=== PATIENT | male | born 1940 | race Caucasian/White ===

== ENCOUNTER → 2020-12-08 | Outpatient (CLI) | payer MEDICARE | END | disposition home or self-care (01) | LOC: SHCH 14:26 | PROVIDERS: ATTEND Internal Medicine Cardiovascular Disease | DX: I48.20 Chronic atrial fibrillation, unspecified (principal) | CPT/HCPCS: 93306; 93356 ==

== ENCOUNTER → 2020-12-09 | Outpatient (CLI) | payer MEDICARE | END | disposition home or self-care (01) | LOC: RAH 10:41 | PROVIDERS: ATTEND Nurse Practitioner Family | DX: M17.12 Unilateral primary osteoarthritis, left knee (principal) | CPT/HCPCS: 93925 ==

== ENCOUNTER → 2020-12-30 | Outpatient (CLI) | payer MEDICARE ==
[~2020-12-30] VITALS: Ht 195.6 cm; Wt 148.8 kg
[~2020-12-30] MED LIST: REGADENOSON 0.4 MG/5 ML PF SYG IVP SCH
== END | disposition home or self-care (01) ==
LOC: SHCH 08:30
PROVIDERS: ATTEND Internal Medicine Cardiovascular Disease
DX: I10 Essential (primary) hypertension (principal); I48.91 Unspecified atrial fibrillation; R06.00 Dyspnea, unspecified; R51.9 Headache, unspecified
CPT/HCPCS: 78452; 93017; 96374; A9500 ×2

== ENCOUNTER 2021-01-16 07:34 | Day surgery (SDC) | payer MEDICARE ==
[2021-01-13 13:18] LABS: BASOPHILS % (AUTO) 0.3 % (0.0-5.0); EOSINOPHILS % (AUTO) 3.6 % (0.0-8.0); HEMATOCRIT 40.6 % (42-54); LYMPHOCYTES % (AUTO) 19.6 % (21.0-51.0); MEAN CORPUSCULAR HEMOGLOBIN 32.2 pg (27.0-33.0); MEAN CORPUSCULAR HGB CONC 32.8 g/dL (32.0-36.0); MEAN CORPUSCULAR VOLUME 98.3 fL (79-99); MONOCYTES % (AUTO) 8.2 % (3.0-13.0); PLATELET COUNT (AUTO) 89 K/uL (130-400); RED BLOOD CELL COUNT(AUTO) 4.13 MIL/uL (4.50-6.20); RED CELL DISTRIBUTION WIDTH 13.8 % (11.0-15.5); WHITE BLOOD COUNT (AUTO) 3.9 K/uL (4.8-10.8)
[2021-01-13 13:23] LABS: APPEARANCE,URINE Clear (CLEAR); BILIRUBIN,URINE Negative (NEGATIVE); COLOR,URINE Yellow (YELLOW); GLUCOSE, URINE (UA) Negative (NEGATIVE); KETONES,URINE Negative (NEGATIVE); LEUKOCYTE ESTERASE ,URINE Negative (NEGATIVE); NITRATE,URINE Negative (NEGATIVE); OCCULT BLOOD,URINE Negative (NEGATIVE); PH,URINE 6.5 (5.0-8.0); PROTEIN,URINE Negative (NEGATIVE)
[2021-01-13 13:31] LABS: CREATININE 0.9 mg/dL (0.5-1.5); POTASSIUM 4.4 mmol/L (3.5-5.1)
[2021-01-13 13:36] LABS: INR 1.05 (0.85-1.15); PROTHROMBIN TIME 11.4 SEC (9.6-11.6)
[2021-01-13 13:37] LABS: PARTIAL THROMBOPLASTIN TIME 30.1 SEC (26.3-35.5)
[2021-01-13 15:20] VITALS: BP 126/82
[2021-01-16] VITALS (9 sets, daily range): BP systolic 103–122; BP diastolic 51–70
[~2021-01-16] VITALS: Ht 195.6 cm; Wt 148.6 kg
[~2021-01-16 07:34] MED LIST changes: +ATOR10 PO; +CHOL200079 PO; +HYDR-4154 PO; +LABE200T5 PO; +LEVO300T8 PO; +LOSA100T58 PO; +METH850P PO; +NITR0.4T SL; +PREG100C55 PO; -REGADENOSON 0.4 MG/5 ML PF SYG IVP SCH; +RIVA20TA PO; +TAMS-1 PO; +TYLENOL PM PO; +UBID200C18 PO
[2021-01-16] MEDS ORDERED: SODIUM CHLORIDE 0.9% 1000ML 1,000 ML IV ONE (07:38)
[2021-01-16] MEDS ORDERED: LEVO175C2 PO (08:32)
[2021-01-16] MEDS ORDERED: LEVO150C4 PO (08:32)
[2021-01-16] MEDS ORDERED: SODIUM BICARB 50MEQ 50ML VIAL 50 ML ONE (11:31)
[2021-01-16] MEDS ORDERED: HEPARIN SODIUM 1000UNIT/ML 10ML VIAL ONE (11:31)
[2021-01-16] MEDS ORDERED: NITROGLYCERIN 2 MG/VIAL VIAL IV ONE (11:32)
[2021-01-16] MEDS ORDERED: MEPERIDINE-PF 25 MG/ML SYG ONE (11:32)
[2021-01-16] MEDS ORDERED: MIDAZOLAM HCL 1 MG/ML 2ML VIAL ONE (11:32)
[2021-01-16] MEDS ORDERED: IOHEXOL-350 50ML VIAL IV ONE (11:32)
[2021-01-16] MEDS ORDERED: IOHEXOL 350 MG/ML 100ML INFUS..BTL IV ONE (11:32)
[2021-01-16] MEDS ORDERED: LIDOCAINE HCL 2% 20ML ONE (11:32)
[2021-01-16] MEDS ORDERED: NITROGLYCERIN 4.1 GM SPRAY TL ONE (12:29)
[2021-01-16] MEDS ORDERED: HYDRALAZINE HCL 20 MG/ML VIAL ONE (12:38)
[2021-01-16] MEDS ORDERED: ACETAMINOPHEN-CODEINE 300/30MG TAB PO PRN ×2 (12:45)
[2021-01-16] MEDS ORDERED: SODIUM CHLORIDE 0.9% 1000ML 1,000 ML IV SCH (12:45)
[2021-01-16] MEDS ORDERED: HYDRALAZINE HCL 20 MG/ML VIAL IM PRN (12:45)
== END 2021-01-16 17:10 ==
LOC: DAH 07:34
PROVIDERS: ATTEND Internal Medicine Cardiovascular Disease
DX: I25.118 Atherosclerotic heart disease of native coronary artery with other forms of angina pectoris (principal); I48.20 Chronic atrial fibrillation, unspecified; E03.9 Hypothyroidism, unspecified; E78.5 Hyperlipidemia, unspecified; I10 Essential (primary) hypertension; G62.9 Polyneuropathy, unspecified; E86.0 Dehydration; Z79.01 Long term (current) use of anticoagulants; Z79.899 Other long term (current) drug therapy; E66.9 Obesity, unspecified; Z98.890 Other specified postprocedural states
CPT/HCPCS: 36415; 71045; 80048; 81003; 85025; 85610; 85730; 93005; 93458; 96360; 96361 ×2; A4215; A4216; A4221; A4222; A4223 ×3; A4606; A4663; C1760; C1894; J0360; J1644; J2175; J2250; J3490 ×3; J7030; Q9965; Q9967 ×2; 99156; 99157

== ENCOUNTER → 2021-08-28 | Outpatient (CLI) | payer MEDICARE ==
[~2021-08-28] MED LIST changes: +DULO60CA64 PO; +LEVO150C4 PO; +LEVO175C2 PO; -LEVO300T8 PO; -LOSA100T58 PO; -METH850P PO; -NITR0.4T SL; -PREG100C55 PO
== END | disposition home or self-care (01) ==
LOC: RAH 08:37
PROVIDERS: ATTEND Internal Medicine
DX: I71.4 Abdominal aortic aneurysm, without rupture (principal); I25.10 Atherosclerotic heart disease of native coronary artery without angina pectoris; I48.20 Chronic atrial fibrillation, unspecified
CPT/HCPCS: 76775

== ENCOUNTER → 2022-12-05 | Outpatient (CLI) | payer MEDICARE ==
[~2022-12-05] MED LIST changes: -LABE200T5 PO; +LABE200T7 PO
[2022-12-05 12:38] LABS: BASOPHILS % (AUTO) 0.5 % (0.0-5.0); EOSINOPHILS % (AUTO) 2.1 % (0.0-8.0); HEMATOCRIT 43.8 % (42-54); MEAN CORPUSCULAR HEMOGLOBIN 31.7 pg (27.0-33.0); MEAN CORPUSCULAR HGB CONC 32.6 g/dL (32.0-36.0); MEAN CORPUSCULAR VOLUME 97.1 fL (79-99); MONOCYTES % (AUTO) 8.6 % (3.0-13.0); NEUTROPHILS % (AUTO) 73.3 % (40.0-77.0); PLATELET COUNT (AUTO) 98 K/uL (130-400); RED BLOOD CELL COUNT(AUTO) 4.51 MIL/uL (4.50-6.20); RED CELL DISTRIBUTION WIDTH 13.2 % (11.0-15.5); WHITE BLOOD COUNT (AUTO) 4.2 K/uL (4.8-10.8)
[2022-12-05 12:53] LABS: INR 0.98 (0.85-1.15); PROTHROMBIN TIME 10.7 SEC (9.6-11.6)
[2022-12-05 12:54] LABS: PARTIAL THROMBOPLASTIN TIME 28.7 SEC (26.3-35.5)
[2022-12-05 12:55] LABS: ALBUMIN 3.8 g/dL (3.5-5.0); CREATININE 0.8 mg/dL (0.5-1.5); POTASSIUM 4.5 mmol/L (3.5-5.1); TOTAL PROTEIN, SERUM 6.8 g/dL (6.0-8.3)
== END | disposition home or self-care (01) ==
LOC: LAB 11:08
PROVIDERS: ATTEND Internal Medicine Cardiovascular Disease
DX: I25.10 Atherosclerotic heart disease of native coronary artery without angina pectoris (principal); Z79.01 Long term (current) use of anticoagulants
CPT/HCPCS: 36415; 80053; 85025; 85610; 85730

== ENCOUNTER → 2023-01-07 | Outpatient (CLI) | payer MEDICARE | END | disposition home or self-care (01) | LOC: RAH 14:40 | PROVIDERS: ATTEND Internal Medicine | DX: N28.1 Cyst of kidney, acquired (principal); M54.50 Low back pain, unspecified; N32.89 Other specified disorders of bladder; R31.9 Hematuria, unspecified | CPT/HCPCS: 76770 ==

== ENCOUNTER 2024-02-17 06:33 | Day surgery (SDC) | payer MEDICARE ==
[2024-02-14 11:46] LABS: BASOPHILS # (AUTO) 0.01 K/uL (0.00-0.20); BASOPHILS % (AUTO) 0.4 % (0.0-5.0); EOSINOPHILS # (AUTO) 0.06 K/uL (0.00-0.70); EOSINOPHILS % (AUTO) 2.3 % (0.0-8.0); IMMATURE GRANULOCYTE ABSOLUTE 0.01 K/uL (0-1); LYMPHOCYTES # (AUTO) 0.6 K/uL (1.0-4.8); LYMPHOCYTES % (AUTO) 23.3 % (21.0-51.0); MEAN CORPUSCULAR HGB CONC 33.4 g/dL (32.0-36.0); MEAN CORPUSCULAR VOLUME 95.8 fL (79-99); MONOCYTES # (AUTO) 0.2 K/uL (0.1-1.0); MONOCYTES % (AUTO) 8.9 % (3.0-13.0); NEUTROPHILS # (AUTO) 1.7 K/uL (1.8-7.7); NEUTROPHILS % (AUTO) 64.7 % (40.0-77.0); PLATELET COUNT (AUTO) 65 K/uL (130-400); RED BLOOD CELL COUNT(AUTO) 4.28 MIL/uL (4.50-6.20); RED CELL DISTRIBUTION WIDTH 13.1 % (11.0-15.5); WHITE BLOOD COUNT (AUTO) 2.6 K/uL (4.8-10.8)
[2024-02-14 11:47] VITALS: BP 136/72; PULSE 54; RESP 16
[2024-02-14 11:59] LABS: INR 0.99 (0.85-1.15); PROTHROMBIN TIME 11.7 SEC (9.6-11.6)
[2024-02-14 12:01] LABS: PARTIAL THROMBOPLASTIN TIME 29.9 SEC (26.3-35.5)
[2024-02-14 12:06] LABS: CREATININE 0.8 mg/dL (0.5-1.3); POTASSIUM 4.4 mmol/L (3.5-5.1)
[2024-02-14 13:27] LABS: EOSINOPHILS % (MANUAL) 4 % (1-6); LYMPHOCYTES % (MANUAL) 23 % (22-44); MAN.DIFF COMMENT-IMPRESSION MANUAL DIFFERENTIAL; MONOCYTES % (MANUAL) 9 % (2-9); REACTIVE LYMPHOCYTES 2 % (0-0); SEGMENTED NEUTROPHILS % 62 % (40-70); TOTAL CELLS COUNTED 100
[2024-02-14 13:28] LABS: PLATELET MORPHOLOGY COMMENT DECREASED
[~2024-02-17] VITALS: Ht 195.6 cm; Wt 148.9 kg
[2024-02-17] VITALS (10 sets, daily range): BP systolic 131–152; BP diastolic 72–85; PULSE 58–75; RESP 15–18
[~2024-02-17 06:33] MED LIST changes: +ASCO500C18 PO; +CALC-866 PO; -CHOL200079 PO; +CYAN-106 PO; +DOXA8TAB81 PO; -DULO60CA64 PO; +DUTA0.5C37 PO; +FISH12002 PO; -HYDR-4154 PO; +L.AC1CAP6 PO; -LABE200T7 PO; +MAGN500C4 PO; +MULT-1367 PO; +NITR0.4T50 SL; -TAMS-1 PO; -TYLENOL PM PO
[2024-02-17] MEDS ORDERED: LIDOCAINE HCL 400MG/20ML VIAL ONE (08:17)
[2024-02-17] MEDS ORDERED: LIDOCAINE HCL 1% MDV 50ML VIAL ONE (08:30)
[2024-02-17] MEDS ORDERED: CEFAZOLIN SODIUM 1 GM VIAL ONE ×2 (08:30→08:45)
[2024-02-17] MEDS ORDERED: BUPIVACAINE/PF 0.25% 30ML VIAL IJ ONE (08:30)
[2024-02-17] MEDS: 0.9%NACL 1000ML 1,000 ML IV ONE (08:44)
[2024-02-17] MEDS ORDERED: MIDAZOLAM HCL 1 MG/ML 2ML VIAL ONE ×3 (08:45→09:37)
[2024-02-17] MEDS ORDERED: MEPERIDINE-PF 25 MG/ML SYG ONE ×3 (08:45→09:37)
[2024-02-17] MEDS ORDERED: IOHEXOL-350 50ML VIAL IV ONE (08:54)
[2024-02-17] MEDS ORDERED: LABETALOL 20MG SYG IV ONE (11:05)
[2024-02-17] MEDS ORDERED: HYDRALAZINE 20MG/ML VIAL IV PRN (12:00)
[2024-02-17] MEDS ORDERED: DOXY100T2 PO (12:44)
[2024-02-17] MEDS: CEFAZOLIN SODIUM 1 GM VIAL IVPB ONE (16:21)
== END 2024-02-17 16:30 | disposition home or self-care (01) ==
LOC: DAH 06:33
PROVIDERS: ATTEND Internal Medicine Cardiovascular Disease
DX: I48.20 Chronic atrial fibrillation, unspecified (principal); I45.10 Unspecified right bundle-branch block; I48.91 Unspecified atrial fibrillation; I11.0 Hypertensive heart disease with heart failure; I50.42 Chronic combined systolic (congestive) and diastolic (congestive) heart failure; E66.9 Obesity, unspecified; E78.5 Hyperlipidemia, unspecified; I25.10 Atherosclerotic heart disease of native coronary artery without angina pectoris; E03.9 Hypothyroidism, unspecified; I25.2 Old myocardial infarction; Z79.01 Long term (current) use of anticoagulants; Z79.899 Other long term (current) drug therapy; Z98.890 Other specified postprocedural states; Z79.890 Hormone replacement therapy; Z86.73 Personal history of transient ischemic attack (TIA), and cerebral infarction without residual deficits; Z90.49 Acquired absence of other specified parts of digestive tract; Z68.38 Body mass index [BMI] 38.0-38.9, adult
CPT/HCPCS: 80048; 85025; 85610; 85730; 36415; 93005 ×2; 33207; 71045; C1786; C1898 ×2; C1894; J0690 ×3; J7030; J0665; J2250 ×3; J2175 ×3; J3490; Q9967; A4215; A4222; A4221; A4663; A4216; A4606; A4223 ×3; 99156; 99157